=== PATIENT | female | born 1995 | race Caucasian/White ===

== ENCOUNTER 2017-10-19 16:10 | Emergency (ER) | payer BC ==
[2017-10-19 16:45] VITALS: BP 105/70
--- NOTE | 2017-10-19 17:27 | UC ---
Complaint Female HPI - HPI Summary HPI Summary: Pt presents with 2 days of urinary frequency, urgency, and burning. She had a uti about 1 year ago around this time and her symptoms feel the same now as they did then. Denies fever, chills, flank pain, vaginal discharge/pain/odor, pelvic pain, abdominal pain, n/v/d/c. - History Of Current Complaint Chief Complaint: UCGU Stated Complaint: BURING AND FREQUENT URINATION Time Seen by Provider: 10/19/17 17:27 Hx Last Menstrual Period: 10/01/2017 ?: No Onset/Duration: Gradual Onset Timing: Constant Severity Initially: Moderate Severity Currently: Moderate Pain Intensity: 4 Pain Scale Used: 0-10 Numeric - Allergies/Home Medications Allergies/Adverse Reactions: Allergies Allergy/AdvReac Type Severity Reaction Status Date / Time No Known Allergies Allergy Verified 09/01/16 17:48 PMH/Surg Hx/FS Hx/Imm Hx Previously Healthy: Yes - Surgical History Surgical History: Yes Surgery Procedure, Year, and Place: adenoids, wisdom teeth - Family History Known Family History: Negative: Cardiac Disease, Hypertension, Diabetes - Social History Occupation: Student Lives: Dormitory/Roommates Alcohol Use: Rare Substance Use Type: None Smoking Status (MU): Never Smoked Tobacco Review of Systems Constitutional: Negative Skin: Negative Respiratory: Negative Cardiovascular: Negative Gastrointestinal: Negative Genitourinary: Dysuria, Frequency, Urgency Neurological: Negative Psychological: Negative All Other Systems Reviewed And Are Negative: Yes Physical Exam Triage Information Reviewed: Yes Appearance: Well-Appearing, No Pain Distress, Well-Nourished Vital Signs: Initial Vital Signs Temp 98.3 F 10/19/17 16:40 Pulse 102 10/19/17 16:40 Resp 16 10/19/17 16:40 BP 105/70 10/19/17 16:40 Pulse Ox 98 10/19/17 16:40 Vital Signs Reviewed: Yes Neck: Positive: Supple, Nontender, No Lymphadenopathy Respiratory: Positive: Chest non-tender, Lungs clear, Normal breath sounds, No respiratory distress, No accessory muscle use Cardiovascular: Positive: RRR, No Murmur, Pulses Normal Abdomen Description: Positive: Nontender, No Organomegaly, Soft. Negative: CVA Tenderness (R), CVA Tenderness (L), Distended, Guarding Bowel Sounds: Positive: Present Neurological: Positive: Alert Psychological: Positive: Age Appropriate Behavior Skin: Negative: rashes Complaint Female Dx - Course Course Of Treatment: UA nitrate positive and 2+ leuks. Treat with Bactrim for 5 days - Differential Dx/Diagnosis Provider Diagnoses: UTI Discharge - Discharge Plan Condition: Stable Disposition: HOME Prescriptions: Sulfamethox/Trimethoprim DS* [Bactrim DS 800/160 TAB*] 1 tab PO BID #10 tab Patient Education Materials: Urinary Tract Infection in Women (DC) Referrals: No Primary Care Phys,NOPCP [Primary Care Provider] - Additional Instructions: If you develop a fever, shortness of breath, chest pain, new or worsening symptoms - please call your PCP or go to the ED.
== END 2017-10-19 18:00 | disposition home or self-care (01) ==
LOC: UCEAST 16:10
DX: N39.0 Urinary tract infection, site not specified (principal)
CPT/HCPCS: 81003; 87086; 99212; G0463

== ENCOUNTER 2017-12-12 14:50 | Emergency (ER) | payer BC ==
[2017-12-12 15:10] VITALS: BP 118/71
--- NOTE | 2017-12-12 17:54 | UC ---
Complaint Female HPI - HPI Summary HPI Summary: Patient is an otherwise healthy 22-year-old female presenting to the with chief complaint of burning with urination and suprapubic tenderness 2 days. History of UTIs and states this feels similar. Worse with urination, better with rest. She also states she is having some weakness in the bilateral upper extremities, which does not affect her walking. Strength is intact. This is the first time this has happened. She also is having her menses at this time. Denies any numbness or tingling. Denies any bladder or bowel dysfunction. She takes no medications. Denies any back pain, fevers, sweats, chills. - History Of Current Complaint Chief Complaint: UCGU Stated Complaint: BURNING URINATION Time Seen by Provider: 12/12/17 14:57 Hx Obtained From: Patient Hx Last Menstrual Period: 12/08 ?: No Onset/Duration: Sudden Onset Timing: Constant Severity Initially: Moderate Severity Currently: Moderate Pain Intensity: 0 Pain Scale Used: 0-10 Numeric Character: Burning Associated Signs And Symptoms: Positive: Negative - Risk Factors Ectopic Risk Factor: Negative Ovarian Torsion Risk Factor: Negative - Allergies/Home Medications Allergies/Adverse Reactions: Allergies Allergy/AdvReac Type Severity Reaction Status Date / Time No Known Allergies Allergy Verified 09/01/16 17:48 PMH/Surg Hx/FS Hx/Imm Hx Previously Healthy: Yes - Surgical History Surgical History: Yes Surgery Procedure, Year, and Place: adenoids, wisdom teeth - Family History Known Family History: Negative: Cardiac Disease, Hypertension, Diabetes - Social History Occupation: Unemployed Lives: With Family Alcohol Use: Rare Substance Use Type: None Smoking Status (MU): Never Smoked Tobacco Review of Systems Constitutional: Negative Skin: Negative Respiratory: Negative Cardiovascular: Negative Gastrointestinal: Negative Genitourinary: Hematuria, Frequency, Urgency Motor: Negative Neurovascular: Negative Neurological: Negative Is Patient Immunocompromised?: No All Other Systems Reviewed And Are Negative: Yes Physical Exam Triage Information Reviewed: Yes Appearance: Well-Appearing, Well-Nourished Vital Signs: Initial Vital Signs Temp 99 F 12/12/17 15:04 Pulse 95 12/12/17 15:04 Resp 16 12/12/17 15:04 BP 118/71 12/12/17 15:04 Pulse Ox 97 12/12/17 15:04 Vital Signs Reviewed: Yes Eye Exam: Normal Eyes: Positive: Conjunctiva Clear Neck exam: Normal Neck: Positive: Supple, No Lymphadenopathy Respiratory Exam: Normal Respiratory: Positive: Chest non-tender, Lungs clear Cardiovascular Exam: Normal Cardiovascular: Positive: RRR Musculoskeletal Exam: Normal Musculoskeletal: Positive: Strength Intact Neurological: Positive: Alert Psychological: Positive: Normal Response To Family Skin Exam: Normal Complaint Female Dx - Course Course Of Treatment: During the course of treatment, the patient's evaluated for urinary symptoms and suprapubic tenderness. Denies any back pain. No CVA tenderness bilaterally. UA obtained which shows trace leuks as well as RBCs. She is given an antibiotic for a UTI based on symptoms and trace leuks, however we will also send off a culture. Weakness in the thighs likely due from a side effect of the menses which is common, however she will follow-up with her PCP regarding this. There is no weakness on physical exam and she is ambulating well. Denies any fevers, sweats, chills. I am not concerned with urosepsis or other pathology at this time. - Differential Dx/Diagnosis Provider Diagnoses: UTI Discharge - Sign-Out/Discharge Documenting (check all that apply): Discharge - Discharge Plan Condition: Stable Disposition: HOME Prescriptions: Cephalexin CAP* [Keflex CAP*] 500 mg PO TID #15 cap Phenazopyridine TAB* [Pyridium 100 mg TAB*] 100 mg PO TID #12 tab Patient Education Materials: Urinary Tract Infection in Women (DC) Referrals: No Primary Care Phys,NOPCP [Primary Care Provider] - Additional Instructions: keflex three times daily x 5 days pyridium as needed for UTI symptoms - up to three times daily Dx. Urinary Tract Infection Drink plenty of fluids. Supplement with cranberry or nascimento juice. You may also take an over the counter cranberry supplement. If you have any questions about this, you may ask your pharmacist. If your symptoms have not improved in 1-2 days, if you develop fever, sweats or chills, please go to your emergency room, or call your PCP. Antibiotics were prescribed to you. Please take as directed. Supplement with over the counter probiotics on the opposite schedule of your antibiotic to prevent secondary infections. Do not take together as they may counteract each other. Pyridium: This medication is used to treat pain, burning, increased urination, and increased urge to urinate. These symptoms are usually caused by infection, injury, surgery, catheter, or other conditions that irritate the lower urinary tract. Pyridium will treat the symptoms of a urinary tract infection, but this medication does not treat the actual infection. Take the antibiotic that your doctor prescribes to treat your infection. Pyridium will most likely darken the color of your urine to an orange or red color. This is a normal effect and is not cause for alarm unless you have other symptoms such as pale or yellowed skin, fever, stomach pain, nausea, and vomiting. Darkened urine may also cause stains to your underwear, which may or may not be removed by laundering. It can also permanently stain soft contact lenses, and you should not wear them while taking this medicine. - Billing Disposition and Condition Condition: STABLE Disposition: HOME
--- NOTE | 2017-12-14 10:20 | UC ---
- Progress Note Progress Note: Pt with + strep group B urine on keflex no change Ljj 12/14/2017 Discharge - Sign-Out/Discharge Documenting (check all that apply): Discharge - Discharge Plan Condition: Stable Disposition: HOME Prescriptions: Cephalexin CAP* [Keflex CAP*] 500 mg PO TID #15 cap Phenazopyridine TAB* [Pyridium 100 mg TAB*] 100 mg PO TID #12 tab Patient Education Materials: Urinary Tract Infection in Women (DC) Referrals: No Primary Care Phys,NOPCP [Primary Care Provider] - Additional Instructions: keflex three times daily x 5 days pyridium as needed for UTI symptoms - up to three times daily Dx. Urinary Tract Infection Drink plenty of fluids. Supplement with cranberry or nascimento juice. You may also take an over the counter cranberry supplement. If you have any questions about this, you may ask your pharmacist. If your symptoms have not improved in 1-2 days, if you develop fever, sweats or chills, please go to your emergency room, or call your PCP. Antibiotics were prescribed to you. Please take as directed. Supplement with over the counter probiotics on the opposite schedule of your antibiotic to prevent secondary infections. Do not take together as they may counteract each other. Pyridium: This medication is used to treat pain, burning, increased urination, and increased urge to urinate. These symptoms are usually caused by infection, injury, surgery, catheter, or other conditions that irritate the lower urinary tract. Pyridium will treat the symptoms of a urinary tract infection, but this medication does not treat the actual infection. Take the antibiotic that your doctor prescribes to treat your infection. Pyridium will most likely darken the color of your urine to an orange or red color. This is a normal effect and is not cause for alarm unless you have other symptoms such as pale or yellowed skin, fever, stomach pain, nausea, and vomiting. Darkened urine may also cause stains to your underwear, which may or may not be removed by laundering. It can also permanently stain soft contact lenses, and you should not wear them while taking this medicine. - Billing Disposition and Condition Condition: STABLE Disposition: HOME
== END 2017-12-12 15:45 | disposition home or self-care (01) ==
LOC: UCEAST 14:50
DX: N39.0 Urinary tract infection, site not specified (principal)
CPT/HCPCS: 81003; 87077; 87086; 99212; G0463

== ENCOUNTER 2018-09-03 20:32 | Emergency (ER) | payer BC ==
[2018-09-03 20:55] VITALS: BP 134/89
[2018-09-03] MEDS ORDERED: Phenazopyridine TAB* 100 MG PO ONE (21:49)
[2018-09-03] MEDS ORDERED: Sulfamethox/Trimethoprim DS 800/160* TAB PO ONE (21:49)
--- NOTE | 2018-09-03 21:50 | UC ---
Complaint Female HPI - HPI Summary HPI Summary: 23 y/o female presents to the urgent care c/o cloudy urine w/ frequency and burning on urination for the past 3 days. Pt reports symptoms worsen yesterday. Pain w/ urination is 4/10. Pt states Hx of UTI in the past. She was seen here on 11/2017 and DX w/ UTI. Pt has not taking anything to alleviate symptoms. LMP: 08/03/2018. However her period is usually irregular. Pt denies fever, pelvic pain, lowr back pain, flank pain, abdominal pain, N/V/D, vaginal discharge or Hx of STD's - History Of Current Complaint Chief Complaint: UCGU Stated Complaint: UTI Time Seen by Provider: 09/03/18 21:20 Hx Obtained From: Patient Hx Last Menstrual Period: 08/03/18 Onset/Duration: Gradual Onset, Lasting Days - 3 days, Still Present, Worse Since - today Timing: Lasting Seconds Severity Initially: Mild Severity Currently: Mild Pain Intensity: 4 Pain Scale Used: 0-10 Numeric Character: Burning Aggravating Factor(s): Urination Alleviating Factor(s): Nothing Associated Signs And Symptoms: Negative: Fever, Back Pain, Vaginal Bleeding/ Discharge, Vaginal Discharge Related Hx: Similar Episode/Dx as: - UTI - Risk Factors Ectopic Risk Factor: Negative Ovarian Torsion Risk Factor: Negative - Allergies/Home Medications Allergies/Adverse Reactions: Allergies Allergy/AdvReac Type Severity Reaction Status Date / Time No Known Allergies Allergy Verified 09/03/18 20:54 PMH/Surg Hx/FS Hx/Imm Hx Previously Healthy: Yes - Pt denies PMHX - Surgical History Surgical History: Yes Surgery Procedure, Year, and Place: adenoids, wisdom teeth - Family History Known Family History: Positive: None - Pt denies FMHX Negative: Cardiac Disease, Hypertension, Diabetes - Social History Occupation: Student Lives: With Family Alcohol Use: Rare Substance Use Type: None Smoking Status (MU): Never Smoked Tobacco - Immunization History Vaccination Up to Date: Yes Review of Systems All Other Systems Reviewed And Are Negative: Yes Constitutional: Positive: Negative Skin: Positive: Negative Eyes: Positive: Negative ENT: Positive: Negative Respiratory: Positive: Negative Cardiovascular: Positive: Negative Gastrointestinal: Positive: Negative Genitourinary: Positive: Dysuria, Frequency, Urgency Motor: Positive: Negative Neurovascular: Positive: Negative Musculoskeletal: Positive: Negative Neurological: Positive: Negative Psychological: Positive: Negative Is Patient Immunocompromised?: No Physical Exam - Summary Physical Exam Summary: VITAL SIGNS: Reviewed. GENERAL: Patient is a well developed and nourished female who is sitting comfortable in the examining table. Patient is not in any acute respiratory distress. HEAD AND FACE: No signs of trauma. No ecchymosis, hematomas or skull depressions. No sinus tenderness. EYES: PERRLA, EOMI x 2, No injected conjunctiva, clear watery eyes, no nystagmus. No photophobia. EARS: Hearing grossly intact. Ear canals and tympanic membranes are within normal limits. MOUTH: pharynx with no erythema, no exudates,no palatal petechiae. no B/L tonsillar enlargement Uvula in midline. NECK: Supple, trachea is midline, no lymphadenopathy, no JVD, no carotid bruit, no c-spine tenderness, neck with full ROM. CHEST: Symmetric, no tenderness at palpation LUNGS: Clear to auscultation bilaterally. No wheezing or crackles. CVS: Regular rate and rhythm, S1 and S2 present, no murmurs or gallops appreciated. ABDOMEN: Soft, non-tender. No signs of distention. No rebound no guarding, and no masses palpated. Bowel sounds are normal. BACK:no scoliosis or lesions, non tender to palpation, No B/L CVA tenderness EXTREMITIES: FROM in all major joints, no edema, no cyanosis or clubbing. NEURO: Alert and oriented x 3. No acute neurological deficits. Speech is normal and follows commands. SKIN: Dry and warm Triage Information Reviewed: Yes Vital Signs: Initial Vital Signs Temp 99.8 F 09/03/18 20:50 Pulse 95 09/03/18 20:50 Resp 16 09/03/18 20:50 BP 134/89 09/03/18 20:50 Pulse Ox 100 09/03/18 20:50 Complaint Female Dx - Course Course Of Treatment: 23 y/o female presents to the urgent care c/o cloudy urine w/ frequency and burning on urination for the past 3 days. Pt reports symptoms worsen yesterday. Pain w/ urination is 4/10. Pt states Hx of UTI in the past. She was seen here on 11/2017 and DX w/ UTI. Pt has not taking anything to alleviate symptoms. LMP:08/03/2018. However her period is usually irregular. Pt denies fever, pelvic pain, lowr back pain, flank pain, abdominal pain, N/V/D, vaginal discharge or Hx of STD's.Hx obtained.PE:WNL. UA and test ordered. UA results: trace, Leukoesterase trace. test: negative. Pt Rx Bactrim PO x 7 days. Pyridium 100mg PO TID x 2 days. Advised to increase fluid intake. Urine sent for culture if any abnormality Pt will be notified for further treatment. Pt advised If symptoms do not improve to return to the urgent care or f/u with PCP. Pt understood and agreed. Left the clinic ambulating. - Differential Dx/Diagnosis Differential Diagnosis/HQI/PQRI: Cervicitis, , Renal Colic, Ureteral Stone, Urinary Tract Infection Provider Diagnosis: UTI (urinary tract infection), Dysuria Discharge - Sign-Out/Discharge Documenting (check all that apply): Patient Departure - D/C home All imaging exams completed and their final reports reviewed: No Studies - Discharge Plan Condition: Stable Disposition: HOME Prescriptions: Phenazopyridine TAB* [Pyridium 100 mg TAB*] 100 mg PO TID #5 tab Sulfamethox/Trimethoprim DS* [Bactrim DS 800/160 TAB*] 1 tab PO BID #13 tab Patient Education Materials: Urinary Tract Infection in Women (ED) Referrals: [facility] [[facility]] - 3 Days Additional Instructions: 1- Please take Bactrim PO x 7 days. Pyridium 100 mg PO TID x 2 days to alleviate urinary symptoms. Increase increase fluid intake. drink cranberry juice. first dose given tonight 2-Urine sent for culture if any abnormality, you will be notified for further treatment. 3-If symptoms do not improve please return to the urgent care or f/u with your PCP in 3 days. - Billing Disposition and Condition Condition: STABLE Disposition: Home
--- NOTE | 2018-09-05 16:41 | UC ---
- Progress Note Progress Note: no growth final urine culture no change [email or web address] 09/05/18 Course/Dx - Diagnoses Provider Diagnoses: UTI (urinary tract infection), Dysuria Discharge - Sign-Out/Discharge Documenting (check all that apply): Post-Discharge Follow Up All imaging exams completed and their final reports reviewed: No Studies - Discharge Plan Condition: Stable Disposition: HOME Prescriptions: Phenazopyridine TAB* [Pyridium 100 mg TAB*] 100 mg PO TID #5 tab Sulfamethox/Trimethoprim DS* [Bactrim DS 800/160 TAB*] 1 tab PO BID #13 tab Patient Education Materials: Urinary Tract Infection in Women (ED) Referrals: [facility] [place] [facility] [[facility]] - 3 Days Additional Instructions: 1- Please take Bactrim PO x 7 days. Pyridium 100 mg PO TID x 2 days to alleviate urinary symptoms. Increase increase fluid intake. drink cranberry juice. first dose given tonight 2-Urine sent for culture if any abnormality, you will be notified for further treatment. 3-If symptoms do not improve please return to the urgent care or f/u with your PCP in 3 days. - Billing Disposition and Condition Condition: STABLE Disposition: Home
== END 2018-09-03 22:35 | disposition home or self-care (01) ==
LOC: UCEAST 20:32
DX: N39.0 Urinary tract infection, site not specified (principal); R30.0 Dysuria; Z87.440 Personal history of urinary (tract) infections
CPT/HCPCS: 81003; 84702; 87086; 99212; A9270-GY; G0463